=== PATIENT | female | born 1990 | race Caucasian/White ===

== ENCOUNTER 2016-05-03 09:51 | Emergency (ER) | payer SELFPAY | END 2016-05-03 13:20 | disposition home or self-care (01) | DX: S39.011A Strain of muscle, fascia and tendon of abdomen, initial encounter (principal); W01.0XXA Fall on same level from slipping, tripping and stumbling without subsequent striking against object, initial encounter; Y92.89 Other specified places as the place of occurrence of the external cause; Y99.0 Civilian activity done for income or pay; F17.200 Nicotine dependence, unspecified, uncomplicated ==

== ENCOUNTER 2017-09-09 11:56 | Emergency (ER) | payer MEDICAID ==
[2017-09-09 13:05] LABS: BASOPHILS # (AUTO) 0.1 10^3/uL (0.0-0.1); BASOPHILS % (AUTO) 0.7 %; EOSINOPHILS # (AUTO) 0.1 10^3/uL (0.0-0.7); EOSINOPHILS % (AUTO) 0.9 %; HGB - HEMOGLOBIN 13.8 g/dL (12.0-16.0); LYMPHOCYTES # (AUTO) 1.3 10^3/uL (1.5-3.5); LYMPHOCYTES % (AUTO) 15.9 %; MEAN CORPUSCULAR HEMOGLOBIN 30.6 pg (27.0-31.0); MEAN CORPUSCULAR HGB CONC 33.4 g/dL (32.0-36.0); MEAN CORPUSCULAR VOLUME 91.4 fL (81.0-99.0); MEAN PLATELET VOLUME 7.7 fL (7.9-10.8); MONOCYTES # (AUTO) 0.5 10^3/uL (0.0-1.0); MONOCYTES % (AUTO) 5.7 %; NEUTROPHILS # (AUTO) 6.2 10^3/uL (1.5-6.6); NEUTROPHILS % (AUTO) 76.8 %; PLT - PLATELET COUNT 242 10^3/uL (130-450); RED BLOOD COUNT 4.53 10^6/uL (4.20-5.40); RED CELL DISTRIBUTION WIDTH 14.2 % (12.0-15.0); WHITE BLOOD COUNT 8.1 x10^3/uL (4.8-10.8)
[2017-09-09 13:16] LABS: ALBUMIN 4.2 g/dL (3.2-5.5); ALBUMIN/GLOBULIN RATIO 1.3 (1.0-2.2); BILIRUBIN,TOTAL 0.8 mg/dL (0.2-1.0); CALCIUM 9.6 mg/dL (8.5-10.3); CREATININE 0.8 mg/dL (0.4-1.0); TOTAL PROTEIN 7.5 g/dL (6.7-8.2)
[2017-09-09 14:21] LABS: BILIRUBIN,URINE NEGATIVE (NEGATIVE); GLUCOSE, URINE (UA) NEGATIVE (NEGATIVE); KETONES,URINE (UA) NEGATIVE (NEGATIVE); LEUKOCYTE ESTERASE, URINE NEGATIVE (NEGATIVE); NITRITE,URINE NEGATIVE (NEGATIVE); OCCULT BLOOD,URINE NEGATIVE (NEGATIVE); PROTEIN,URINE NEGATIVE (NEGATIVE); UROBILINOGEN,URINE 0.2 (NORMAL) E.U./dL (NORMAL)
[2017-09-09 14:25] LABS: CLARITY,URINE CLEAR (CLEAR); HCG UR QUAL NEGATIVE
[2017-09-09] MEDS ORDERED: KETOROLAC 60 MG/2 ML VIAL IVP STA (15:51)
[2017-09-09] MEDS ORDERED: SODIUM CHLORIDE 0.9% 1,000 ML IV ONE (15:51)
--- NOTE | 2017-09-09 15:59 | ED Physician Documentation ---
History of Present Illness - Stated complaint Stated Complaint: R LOWER ABD PX - Chief complaint Chief Complaint: Abd Pain - Additonal information Additional information: hx from pt 27 y/o f LMP now denies preg hx ovarian cysts to ED with abrupt onset severer R abd pain today 11 AM while getting dressed no fever nausea no diarrhea no vag dc no urinary sx Review of Systems Constitutional: denies: Fever GI: reports: Abdominal Pain, Nausea. denies: Diarrhea : reports: LMP (now). denies: Discharge, Now EGA Musculoskeletal: denies: Back pain Endocrine: denies: Easy bruising / bleeding Immunocompromised: denies: Immunocompromised PD PAST MEDICAL HISTORY - Past Surgical History Past Surgical History: No - Present Medications Home Medications: Ambulatory Orders Medication Instructions Recorded Confirmed No Known Home Medications [No 05/03/16 05/03/16 Known Home Medications] - Allergies Allergies/Adverse Reactions: Allergies Allergy/AdvReac Type Severity Reaction Status Date / Time No Known Drug Allergies Allergy Verified 09/09/17 12:35 - Social History Does the pt smoke?: Yes Smoking Status: Current every day smoker Does the pt drink ETOH?: No Does the pt have substance abuse?: No - Immunizations Immunizations are current?: Yes PD ED PE NORMAL - Vitals Vital signs reviewed: Yes - Cardiac Cardiac: RRR - Respiratory Respiratory: No respiratory distress, Clear bilaterally - Abdomen Abdomen: Soft, Other (entire right abd TTP lower > upper with guarding) Results - Vitals Vitals: Vital Signs - 24 hr 09/09/17 09/09/17 09/09/17 12:31 15:22 18:19 Temperature 36.5 C Heart Rate 72 67 69 Respiratory 16 12 18 Rate Blood Pressure 128/76 119/83 H 123/86 H O2 Saturation 99 98 99 Oxygen O2 Source Room air - Labs Labs: Laboratory Tests 09/09/17 09/09/17 09/09/17 12:51 12:51 14:15 WBC 8.1 RBC 4.53 Hgb 13.8 Hct 41.4 MCV 91.4 MCH 30.6 MCHC 33.4 RDW 14.2 Plt Count 242 MPV 7.7 L Neut # (Auto) 6.2 Lymph # (Auto) 1.3 L [place] # (Auto) 0.5 Eos # (Auto) 0.1 Baso # (Auto) 0.1 Absolute Nucleated RBC 0.00 Nucleated RBC % 0.0 Sodium 138 Potassium 3.9 Chloride 105 Carbon Dioxide 25 Anion Gap 8.0 BUN 7 Creatinine 0.8 Estimated GFR (MDRD) 86 L Glucose 88 Calcium 9.6 Total Bilirubin 0.8 AST 28 ALT 17 Alkaline Phosphatase 50 Total Protein 7.5 Albumin 4.2 Globulin 3.3 Albumin/Globulin Ratio 1.3 Lipase 20 L Urine Color YELLOW Urine Clarity CLEAR Urine pH 7.0 Ur Specific [place] 1.010 Urine Protein NEGATIVE Urine Glucose (UA) NEGATIVE Urine Ketones NEGATIVE Urine Occult Blood NEGATIVE Urine Nitrite NEGATIVE Urine Bilirubin NEGATIVE Urine Urobilinogen 0.2 (NORMAL) Ur Leukocyte Esterase NEGATIVE Ur Microscopic Review NOT INDICATED Urine Culture Comments NOT INDICATED Urine HCG, Qual NEGATIVE - Rads (name of study) abd and pelvis sono Radiology: See rad report (nl GB, nl ovaries, no ff, appendix non vis) PD MEDICAL DECISION MAKING - ED course ED course: labs nl, HCG neg, GB ovaries kidney nl on sono still sig TTP concern for appendicitis though abrupt onset atypical - ordered CT with IV con > [address] not done and pt says she needs to leave I spoke to her and explained I still had not uled out appy and she says she will follow up PMD tomorrow for a recheck and return if worse - Sepsis Event Vital Signs: Vital Signs - 24 hr 09/09/17 09/09/17 09/09/17 12:31 15:22 18:19 Temperature 36.5 C Heart Rate 72 67 69 Respiratory 16 12 18 Rate Blood Pressure 128/76 119/83 H 123/86 H O2 Saturation 99 98 99 Oxygen O2 Source Room air Departure - Departure Disposition: 07 Against Medical Advice Clinical Impression: Abdominal pain Qualifiers: Abdominal location: right lower quadrant Qualified Code(s): R10.31 - Right lower quadrant pain Condition: Stable Comments: The kidney, gallbladder, and ovaries were all normal on ultrasound. But the appendix could not be seen so appendicitis has not yet been ruled out. You could not wait any longer for the CT scan Please see your PMD for a recheck tomorrow And return if worse - we are always open and would be happy to continue caring for you Discharge Date/Time: 09/09/17 20:00
[2017-09-09] MEDS ORDERED: ONDANSETRON 4 MG/2 ML VIAL IVP STA (17:48)
[2017-09-09] MEDS ORDERED: MORPHINE 2 MG/ML SYRINGE IVP STA (17:48)
--- NOTE | 2017-09-09 18:02 | Ultrasound Report ---
Procedure Date: 09/09/2017 Accession Number: [id number] / [id number] Procedure: US - Abdomen Limited CPT Code: FULL RESULT: EXAM: ABDOMEN ULTRASOUND LIMITED, RIGHT UPPER QUADRANT EXAM DATE: 09/09/2017 05:00 PM. CLINICAL HISTORY: Right abdominal pain evaluate gallbladder and appendix. COMPARISON: None. TECHNIQUE: Real-time scanning was performed with static images obtained. FINDINGS: Liver: Normal in size and echotexture. 16.7 cm. Main portal vein flow: Hepatopetal. Gallbladder: Normal. No stones, wall thickening, or sonographic Solorio's sign. Biliary System: CBD measures 3.4 mm. No intrahepatic or extrahepatic ductal dilatation. Pancreas: Normal. Right kidney: 10 cm. No hydronephrosis. Other: None. IMPRESSION: Normal. No cholelithiasis or cholecystitis. RADIA
--- NOTE | 2017-09-09 18:05 | Ultrasound Report ---
Procedure Date: 09/09/2017 Accession Number: [id number] / [id number] Procedure: US - Pelvic w/Doppler Limited CPT Code: FULL RESULT: EXAM: PELVIC ULTRASOUND EXAM DATE: 09/09/2017 05:34 PM. CLINICAL HISTORY: Right lower quadrant pain. COMPARISON: 05/03/2016. TECHNIQUE: Realtime transabdominal pelvic scan performed to identify the uterus and adnexa and as an overview of other pelvic structures, with static image documentation. FINDINGS: Uterus: 6.4 x 3.1 x 4.5 cm, volume 46.7 cc. Anteverted position. Normal overall size and echotexture. Masses: None. Endometrium: 3.3 mm. Normal. Cervix: Unremarkable. Right Ovary: 3.4 x 1.7 x 1.6 cm, volume 4.8 cc. Normal echotexture and blood flow. Left Ovary: 3.7 x 1.9 x 2.5 cm, volume 9.2 cc. Normal echotexture and blood flow. Free Fluid: None. Other: Limited right lower quadrant ultrasound evaluation limited by significant bowel gas artifacts. No appendix, free or complex collections are noted. No adenopathy identified. IMPRESSION: 1. Appendix not seen on this limited study. No adenopathy, free fluid or collection. 2. Normal pelvic ultrasound. RADIA
[2017-09-09 18:21] VITALS: BP 123/86
[2017-09-09] MEDS ORDERED: IOPAMIDOL-300 100 ML VIAL ONE ×2 (18:43→19:48)
== END 2017-09-09 20:00 | disposition left against medical advice (07) ==
LOC: ED 11:56
DX: Z53.20 Procedure and treatment not carried out because of patient's decision for unspecified reasons (principal); R10.31 Right lower quadrant pain; F17.200 Nicotine dependence, unspecified, uncomplicated
CPT/HCPCS: 36415; 76705; 76856; 80053; 81003; 81025; 83690; 85025; 93976; 96361; 96374; 96375; 99283; J2270; 81001; 87086

== ENCOUNTER 2018-03-19 09:55 | Emergency (ER) | payer SELFPAY ==
--- NOTE | 2018-03-19 10:07 | ED Physician Documentation ---
PD HPI HEADACHE - Stated complaint Stated Complaint: HEADACHE - History obtained from History obtained from: Patient - History of Present Illness Timing - onset: How many days ago (2) Timing - onset during: Light activity Timing - duration: Days (2) Timing - details: Gradual onset, Still present, Waxing and waning Worst headache ever?: No: Worst headache ever? (feels similar to migraines she gets at times, but has not had one last 2 days previously. No injury. No URI symptoms. No focal weakness. she is light sensitive.) Location: Front, Left Quality: Throbbing, Aching Associated symptoms: Nausea, Vision changes (blurred left eye at times). No: Fever, Stiff neck, Vomiting, Weakness, Numbness Improved by: No: Meds (Excedrin OTC med.) Worsened by: Light Contributing factors: No: Recent illness, Trauma Similar symptoms before: Diagnosis (has had migraines headaches with similar symptoms, but usually last just hours and improved with Excedrin/time.) Review of Systems Constitutional: denies: Fever, Chills Eyes: reports: Photophobia. denies: Loss of vision Nose: denies: Rhinorrhea / runny nose, Congestion Throat: denies: Sore throat Respiratory: denies: Cough Skin: denies: Rash, Lesions Neurologic: denies: Focal weakness, Numbness, Difficulty speaking PD PAST MEDICAL HISTORY - Past Medical History Cardiovascular: None Respiratory: None Neuro: Migraines Endocrine/Autoimmune: None - Past Surgical History Past Surgical History: No - Present Medications Home Medications: Ambulatory Orders Medication Instructions Recorded Confirmed Ondansetron Odt [Zofran] 4 mg TL Q6H PRN #10 tablet 03/19/18 SUMAtriptan [Imitrex] 50 mg PO ONCE PRN #5 tablet 03/19/18 - Allergies Allergies/Adverse Reactions: Allergies Allergy/AdvReac Type Severity Reaction Status Date / Time No Known Drug Allergies Allergy Verified 03/19/18 10:09 - Social History Does the pt smoke?: Yes Smoking Status: Current every day smoker Does the pt drink ETOH?: No Does the pt have substance abuse?: No - Immunizations Immunizations are current?: Yes - POLST Patient has POLST: No PD ED PE NORMAL - Vitals Vital signs reviewed: Yes - General General: Alert and oriented X 3, No acute distress, Well developed/nourished - HEENT HEENT: Atraumatic, PERRL (light sensitive), Ears normal, Pharynx benign - Neck Neck: Supple, no meningeal sign, No adenopathy - Cardiac Cardiac: RRR, No murmur - Respiratory Respiratory: Clear bilaterally - Back Back: No CVA TTP - Derm Derm: Normal color, Warm and dry - Neuro Neuro: Alert and oriented X 3, No motor deficit, Normal speech Results - Vitals Vitals: Vital Signs - 24 hr 03/19/18 03/19/18 03/19/18 10:05 10:22 11:52 Temperature 36.6 C 36.9 C Heart Rate 86 86 77 Respiratory 12 14 12 Rate Blood Pressure 141/101 H 141/101 H 135/98 H O2 Saturation 100 100 100 Oxygen O2 Source Room air PD MEDICAL DECISION MAKING - ED course Complexity details: re-evaluated patient (ROE mostly gone with Zofran and Toradol. ), considered differential, d/w patient Departure - Departure Disposition: 01 Home, Self Care Clinical Impression: Migraine headache Qualifiers: Migraine type: without aura Status migrainosus presence: without status migrainosus Intractability: not intractable Qualified Code(s): G43.009 - Migraine without aura, not intractable, without status migrainosus Condition: Stable Record reviewed to determine appropriate education?: Yes Instructions: ED Headache Migraine Prescriptions: Ondansetron Odt [Zofran] 4 mg TL Q6H PRN #10 tablet PRN Reason: Nausea / Vomiting SUMAtriptan [Imitrex] 50 mg PO ONCE PRN #5 tablet PRN Reason: Headache Comments: For subsequent migraines, you can try a combination of the Excedrin or ibuprofen along with ondansetron for nausea and Imitrex for the headache and see if it alleviates it more promptly. Drink lots of fluids today. Discharge Date/Time: 03/19/18 12:28
[2018-03-19] MEDS ORDERED: DEXAMETHASONE 10 MG/ML VIAL PO STA (11:04)
[2018-03-19] MEDS ORDERED: KETOROLAC 30 MG/ML VIAL IM STA (11:04)
[2018-03-19] MEDS ORDERED: ONDANSETRON ODT 4 MG TABLET TL STA (11:04)
[2018-03-19 11:53] VITALS: BP 135/98
== END 2018-03-19 12:28 | disposition home or self-care (01) ==
LOC: ED 09:55
DX: G43.009 Migraine without aura, not intractable, without status migrainosus (principal); F17.200 Nicotine dependence, unspecified, uncomplicated
CPT/HCPCS: 96372; 99283; Q0162

== ENCOUNTER 2018-04-22 08:32 | Emergency (ER) | payer SELFPAY ==
[2018-04-22] MEDS ORDERED: IBUPROFEN 800 MG TABLET PO STA (11:35)
--- NOTE | 2018-04-22 11:38 | ED Physician Documentation ---
PD HPI URI - Stated complaint Stated Complaint: FLU LIKE SYMPTOMS - Chief complaint Chief Complaint: General - History obtained from History obtained from: Patient - History of Present Illness Timing - onset: How many days ago (4) Timing duration: Days (4) Timing details: Still present Associated symptoms: Fever, Nasal congestion, Dry cough Similar symptoms before: Has not had sx before - Additional information Additional information: The patient is a 28-year-old female who presents with cough and congestion that has been progressing over the past 4 days. Her cough is nonproductive of sputum, but she reports discomfort in her chest with coughing. She also reports intermittent fever and lightheadedness. She had a headache yesterday, but not today. She denies sore throat except with coughing. She denies abdominal pain, nausea or vomiting. Her partner has been sick with similar symptoms. Review of Systems Constitutional: reports: Fever, Myalgias Eyes: denies: Irritation Ears: denies: Ear pain Nose: reports: Congestion Throat: denies: Sore throat Cardiac: reports: Chest pain / pressure (with coughing) Respiratory: reports: Cough. denies: Dyspnea GI: denies: Abdominal Pain, Nausea, Vomiting : denies: Dysuria Skin: denies: Rash Musculoskeletal: denies: Back pain Neurologic: denies: Headache PD PAST MEDICAL HISTORY - Past Medical History Cardiovascular: None Respiratory: None Neuro: Migraines Endocrine/Autoimmune: None - Past Surgical History Past Surgical History: No - Present Medications Home Medications: Ambulatory Orders Medication Instructions Recorded Confirmed Ondansetron Odt [Zofran] 4 mg TL Q6H PRN #10 tablet 03/19/18 SUMAtriptan [Imitrex] 50 mg PO ONCE PRN #5 tablet 03/19/18 Benzonatate [Tessalon Perle] 100 - 200 mg PO TID PRN #30 capsule 04/22/18 - Allergies Allergies/Adverse Reactions: Allergies Allergy/AdvReac Type Severity Reaction Status Date / Time No Known Drug Allergies Allergy Verified 04/22/18 08:50 - Social History Does the pt smoke?: Yes Smoking Status: Current every day smoker Does the pt drink ETOH?: No Does the pt have substance abuse?: No - Immunizations Immunizations are current?: Yes - POLST Patient has POLST: No PD ED PE NORMAL - Vitals Vital signs reviewed: Yes (normal) - General General: Alert and oriented X 3, Well developed/nourished - HEENT HEENT: Atraumatic, EOMI, Ears normal, Pharynx benign - Neck Neck: Supple, no meningeal sign, No adenopathy, No JVD - Cardiac Cardiac: RRR, No murmur - Respiratory Respiratory: Clear bilaterally - Abdomen Abdomen: Soft, Non tender - Back Back: No CVA TTP - Derm Derm: No rash - Extremities Extremities: No edema, No calf tenderness / cord - Neuro Neuro: Alert and oriented X 3, No motor deficit, Normal speech Results - Vitals Vitals: Oxygen O2 Source Room air - Labs Labs: Laboratory Tests 04/22/18 08:45 Influenza A (Rapid) Negative Influenza B (Rapid) Negative PD MEDICAL DECISION MAKING - ED course Complexity details: reviewed results, re-evaluated patient, considered differential, d/w patient ED course: The patient's presentation is most consistent with viral upper respiratory infection, with acute viral syndrome. Her influenza swab is negative. Her presentation does not suggest meningitis or pneumonia. Treatment in the emergency department included administration of ibuprofen 800 mg orally. She is being discharged with prescription for Tessalon. I discussed with her the expected course of illness, symptomatic treatment and outpatient follow-up, as well as potentially worrisome signs or symptoms that should prompt reevaluation in the emergency department. Departure - Departure Disposition: 01 Home, Self Care Clinical Impression: Acute viral syndrome Condition: Stable Instructions: ED Viral Syndrome Follow-Up: [facility] [Provider Group] Prescriptions: Benzonatate [Tessalon Perle] 100 - 200 mg PO TID PRN #30 capsule PRN Reason: Cough Comments: Your symptoms are most consistent with a viral upper respiratory infection. Antibiotics are not clinically indicated for this type of viral infection. Treatment should be geared toward managing symptoms: Drink plenty of fluids. Use Tylenol or ibuprofen as needed for fever or discomfort. You can use Tessalon as prescribed if needed for cough. Wash your hands frequently, and cover your cough. Follow up with your primary physician, or return to the emergency department, if not improving within 1-2 weeks. Return to the emergency department if you develop increasing difficulty breat edward, or otherwise worsening symptoms. Forms: Activity restrictions Discharge Date/Time: 04/22/18 12:03
[2018-04-22 12:02] VITALS: BP 134/80
== END 2018-04-22 12:03 | disposition home or self-care (01) ==
LOC: ED 08:32
DX: B34.9 Viral infection, unspecified (principal); F17.200 Nicotine dependence, unspecified, uncomplicated
CPT/HCPCS: 87275; 87276; 99283; A9270

== ENCOUNTER 2019-09-06 12:43 | Emergency (ER) | payer SELFPAY ==
[2019-09-06 12:53] VITALS: BP 132/88
--- NOTE | 2019-09-06 13:21 | ED Physician Documentation ---
History of Present Illness - Stated complaint Stated Complaint: HEAD INJURY - Chief complaint Chief Complaint: General - History of Present Illness Timing: How many weeks ago (2) Pain level max: 10 Pain level now: 0 - Additonal information Additional information: 29-year-old female presents to the emergency department for evaluation of a hematoma above her right eye and right rib pain. This is after a fall 2 weeks ago where she hit the dresser in her room. Patient does report to me that she does not remember the event of the fall and did have loss of consciousness. She woke up to her and mother trying to keep her awake. Patient has a moderate sized hematoma on her left forehead. She is concerned because the bruising has not resolved. She also reports right-sided rib pain that is worse with a deep breath. Since the fall she denies headaches, vomiting, feeling dizzy weak or fatigued or dyspneic Patient denies any pertinent past medical history. Takes no prescribed medications. Social history positive for tobaccoism. Review of Systems Constitutional: denies: Fever, Chills Eyes: denies: Loss of vision, Decreased vision, Photophobia Ears: denies: Loss of hearing, Ear pain, Drainage/discharge Nose: denies: Rhinorrhea / runny nose, Congestion, Epistaxis, Sinus pressure / pain, Foreign Body Throat: denies: Dental pain / toothache, Oral lesions / sores, Sore throat Cardiac: reports: Chest pain / pressure (right sided reporducible rib pain). denies: Pedal edema, Calf pain Respiratory: denies: Dyspnea, Hemoptysis GI: denies: Abdominal Pain, Abdominal Swelling, Nausea : denies: Dysuria Skin: denies: Rash, Lesions Musculoskeletal: denies: Neck pain, Back pain, Extremity pain Neurologic: reports: Head injury, LOC (2 weeks ago after striking the dresser). denies: Focal weakness, Difficulty speaking, Syncope, Seizure, Confused, Altered mental status, Headache PD PAST MEDICAL HISTORY - Past Medical History Cardiovascular: None Respiratory: None Neuro: Migraines Endocrine/Autoimmune: None - Past Surgical History Past Surgical History: No - Present Medications Home Medications: Ambulatory Orders Medication Instructions Recorded Confirmed Ondansetron Odt [Zofran] 4 mg TL Q6H PRN #10 tablet 03/19/18 SUMAtriptan [Imitrex] 50 mg PO ONCE PRN #5 tablet 03/19/18 Benzonatate [Tessalon Perle] 100 - 200 mg PO TID PRN #30 capsule 04/22/18 - Allergies Allergies/Adverse Reactions: Allergies Allergy/AdvReac Type Severity Reaction Status Date / Time No Known Drug Allergies Allergy Verified 09/06/19 12:50 - Social History Does the pt smoke?: Yes Smoking Status: Current every day smoker Does the pt drink ETOH?: No Does the pt have substance abuse?: No - Immunizations Immunizations are current?: Yes - POLST Patient has POLST: No PD ED PE NORMAL - General General: Alert and oriented X 3, No acute distress, Well developed/nourished - HEENT HEENT: Other (3 cm left forehead hematoma; bruising aroudn the left eye. EOMI intact. No bonu tenderness of either orbit) - Neck Neck: No: No bony TTP, No adenopathy - Cardiac Cardiac: No: RRR - Respiratory Respiratory: Other (tenderness with palpation right anterior lateral rib wall. no crepitus or ecchymosis). No: No respiratory distress - Abdomen Abdomen: Normal bowel sounds - Rectal Rectal: Deferred - Back Back: No CVA TTP, No spinal TTP - Derm Derm: Normal color, Warm and dry, No rash, Other (hematoma left forehead; left periocular bruising) - Extremities Extremities: No deformity - Neuro Neuro: Alert and oriented X 3, lacquer machine feeder 2-12 intact, No motor deficit Eye Opening: Spontaneous Motor: Obeys Commands - Psych Psych: Normal mood Results - Vitals Vitals: Vital Signs - 24 hr 09/06/19 12:50 Temperature 36.5 C Heart Rate 120 H Respiratory 16 Rate Blood Pressure 132/88 H O2 Saturation 96 Oxygen O2 Source Room air - Rads (name of study) CXR Radiology: Final report received (No acute cardiopulmonary pathology) PD MEDICAL DECISION MAKING - ED course Complexity details: reviewed results, d/w patient, d/w family ED course: 29-year-old female presents to the emergency department after a fall 2 weeks ago when she hit the dresser at her house. - She is noted to have a large 3 cm hematoma to her left forehead. The hematoma is soft and there is no surrounding erythema. No signs of infection. Will not recommend drainage of this hematoma at this time unless it fails to resolve. - She is also noted to have left periocular ecchymosis. She has no ocular entrapment and no bony or facial tenderness/crepitus. I have offered the patient a CT scan of her head to rule out fracture but she declines that at this time. Her main focus is the hematoma. - She does have right lateral rib wall tenderness to palpation. Chest x-ray demonstrates no obvious deformity or rib fracture. My suspicion is that she likely has a contusion. Departure - Departure Disposition: 01 Home, Self Care Clinical Impression: Hematoma, Chest wall tenderness Ecchymosis of left eye Qualifiers: Encounter type: initial encounter Qualified Code(s): S05.12XA - Contusion of eyeball and orbital tissues, left eye, initial encounter Condition: Stable Instructions: ED Contusion Chest Wall, ED Hematoma Comments: The x-ray of your chest does not show any obviously broken ribs. Your lungs are fully inflated The hematoma on your forehead will likely take a few weeks to resolve. Hematomas are typically only drained if they become infected and yours at this time does not appear to be infected. Please return to the emergency department if you develop any fevers, have redness around the hematoma, have difficulty seeing speaking or talking. I would recommend that you take ibuprofen or tylenol for any chest discomfort.
--- NOTE | 2019-09-06 13:45 | XRAY Report ---
PROCEDURE: Chest 2 View X-Ray INDICATIONS: cough TECHNIQUE: 2 view(s) of the chest. COMPARISON: None. FINDINGS: Surgical changes and devices: None. Lungs and pleura: No pleural effusions or pneumothorax. Lungs are clear. Mediastinum: Mediastinal contours are normal. Heart size is normal. Bones and chest wall: No suspicious bony abnormalities. Soft tissues appear unremarkable. IMPRESSION: No acute cardiopulmonary pathology. Reviewed by: Rodger Atkinson MD on 09/06/2019 1:44 PM PDT Approved by: Rodger Atkinson MD on 09/06/2019 1:44 PM PDT Station ID: [id number]
== END 2019-09-06 14:06 | disposition home or self-care (01) ==
LOC: ED 12:43
DX: S00.83XA Contusion of other part of head, initial encounter (principal); S00.12XA Contusion of left eyelid and periocular area, initial encounter; R07.89 Other chest pain; W01.190A Fall on same level from slipping, tripping and stumbling with subsequent striking against furniture, initial encounter; Y92.003 Bedroom of unspecified non-institutional (private) residence as the place of occurrence of the external cause; F17.200 Nicotine dependence, unspecified, uncomplicated
CPT/HCPCS: 71046; 99281; 99284

== ENCOUNTER 2020-01-04 10:53 | Emergency (ER) | payer MEDICAID ==
--- NOTE | 2020-01-04 11:15 | ED Physician Documentation ---
PD HPI ABD PAIN - Stated complaint Stated Complaint: N/V - Chief complaint Chief Complaint: Abd Pain - History obtained from History obtained from: Patient - Additional information Additional information: 29-year-old woman who has no possibility of has been dealing with painless nausea for about a month that is acutely worse over the last 3 days. She cannot keep anything down now. She does have generally loose stools as well. Denies abdominal pain. She does not think she has been obviously losing weight. She does notice easy bruising. She does use marijuana almost daily but finds no relief from a hot shower. Review of Systems Ten Systems: 10 systems reviewed and negative Constitutional: denies: Fever, Chills, Weight Loss Nose: denies: Rhinorrhea / runny nose, Congestion Throat: denies: Sore throat Cardiac: denies: Chest pain / pressure, Palpitations Respiratory: denies: Dyspnea, Cough PD PAST MEDICAL HISTORY - Past Medical History Cardiovascular: None Respiratory: None Neuro: Migraines Endocrine/Autoimmune: None - Past Surgical History Past Surgical History: No - Present Medications Home Medications: Ambulatory Orders Medication Instructions Recorded Confirmed Ondansetron Odt [Zofran] 4 mg TL Q6H PRN #10 tablet 03/19/18 SUMAtriptan [Imitrex] 50 mg PO ONCE PRN #5 tablet 03/19/18 Benzonatate [Tessalon Perle] 100 - 200 mg PO TID PRN #30 capsule 04/22/18 Ondansetron Odt [Zofran] 4 mg TL Q6H PRN #20 tablet 01/04/20 - Allergies Allergies/Adverse Reactions: Allergies Allergy/AdvReac Type Severity Reaction Status Date / Time No Known Drug Allergies Allergy Verified 01/04/20 11:07 - Social History Does the pt smoke?: Yes Smoking Status: Current every day smoker Does the pt drink ETOH?: No Does the pt have substance abuse?: No Substance Use and Type: Marijuana - Family History Family history: reports: Non contributory - Immunizations Immunizations are current?: Yes - POLST Patient has POLST: No PD ED PE NORMAL - Vitals Vital signs reviewed: Yes - General General: Alert and oriented X 3, No acute distress - HEENT HEENT: PERRL, EOMI - Neck Neck: Supple, no meningeal sign, No bony TTP - Cardiac Cardiac: RRR, No murmur - Respiratory Respiratory: No respiratory distress, Clear bilaterally - Abdomen Abdomen: Non tender - Back Back: No CVA TTP, No spinal TTP - Derm Derm: Normal color, Warm and dry - Extremities Extremities: No edema, No calf tenderness / cord - Neuro Neuro: Alert and oriented X 3, Normal speech Results - Vitals Vitals: Vital Signs - 24 hr 01/04/20 01/04/20 10:57 13:19 Temperature 36.8 C Heart Rate 90 77 Respiratory 16 18 Rate Blood Pressure 152/98 H 138/101 H O2 Saturation 99 100 Oxygen O2 Source Room air - Labs Labs: Laboratory Tests 01/04/20 01/04/20 01/04/20 11:30 11:30 11:30 WBC 4.3 L RBC 4.61 Hgb 15.6 Hct 45.5 MCV 98.7 MCH 33.8 H MCHC 34.3 RDW 13.7 Plt Count 156 MPV 10.1 Neut # (Auto) 2.9 Lymph # (Auto) 0.8 L Ceiba # (Auto) 0.5 Eos # (Auto) 0.0 Baso # (Auto) 0.0 Absolute Nucleated RBC 0.00 Nucleated RBC % 0.0 VBG pH VBG pCO2 VBG pO2 VBG HCO3 VBG Total CO2 VBG O2 Saturation VBG Base Excess Sodium 138 Potassium 3.2 L Chloride 98 L Carbon Dioxide 22 Anion Gap 18.0 H BUN 5 L Creatinine 0.8 Estimated GFR (MDRD) 85 L Glucose 87 Calcium 9.5 Magnesium Total Bilirubin 2.0 H AST 111 H ALT 68 H Alkaline Phosphatase 100 Total Protein 7.5 Albumin 4.0 Globulin 3.5 Albumin/Globulin Ratio 1.1 Lipase 32 Urine Color DARK YELLOW Urine Clarity CLEAR Urine pH 6.0 Ur Specific [place] 1.020 Urine Protein NEGATIVE Urine Glucose (UA) NEGATIVE Urine Ketones >=80 H Urine Occult Blood NEGATIVE Urine Nitrite NEGATIVE Urine Bilirubin NEGATIVE Urine Urobilinogen 0.2 (NORMAL) Ur Leukocyte Esterase NEGATIVE Ur Microscopic Review NOT INDICATED Urine Culture Comments NOT INDICATED Urine HCG, Qual NEGATIVE Serum Ketones 01/04/20 01/04/20 11:30 11:30 WBC RBC Hgb Hct MCV MCH MCHC RDW Plt Count MPV Neut # (Auto) Lymph # (Auto) Ceiba # (Auto) Eos # (Auto) Baso # (Auto) Absolute Nucleated RBC Nucleated RBC % VBG pH 7.391 VBG pCO2 33.3 L VBG pO2 39.7 VBG HCO3 19.8 L VBG Total CO2 20.8 L VBG O2 Saturation 76.4 VBG Base Excess -4.2 L Sodium Potassium Chloride Carbon Dioxide Anion Gap BUN Creatinine Estimated GFR (MDRD) Glucose Calcium Magnesium 2.0 Total Bilirubin AST ALT Alkaline Phosphatase Total Protein Albumin Globulin Albumin/Globulin Ratio Lipase Urine Color Urine Clarity Urine pH Ur Specific [place] Urine Protein Urine Glucose (UA) Urine Ketones Urine Occult Blood Urine Nitrite Urine Bilirubin Urine Urobilinogen Ur Leukocyte Esterase Ur Microscopic Review Urine Culture Comments Urine HCG, Qual Serum Ketones NEGATIVE PD MEDICAL DECISION MAKING - ED course ED course: 29-year-old woman presents with nausea and vomiting that is painless worsening over a month. Examination is benign. Labs show evidence of dehydration and some transaminitis. This was discussed with her, she is a daily heavy drinker. Departure - Departure Disposition: Home, Self Care Clinical Impression: Vomiting Qualifiers: Vomiting type: unspecified Vomiting Intractability: non-intractable Nausea presence: with nausea Qualified Code(s): R11.2 - Nausea with vomiting, unspecified Alcoholic hepatitis Qualifiers: Ascites presence: without ascites Qualified Code(s): K70.10 - Alcoholic hepatitis without ascites Condition: Good Record reviewed to determine appropriate education?: Yes Instructions: ED Nausea Vomiting, ED Alcohol Abuse Prescriptions: Ondansetron Odt [Zofran] 4 mg TL Q6H PRN #20 tablet PRN Reason: Nausea / Vomiting Comments: Based on your labs and ultrasound the most Likely cause of your vomiting is from ongoing alcohol abuse. It is important to quit drinking alcohol and let your liver recover. Return if worsening. Follow-up with your primary care physician regardless, next available appointment.
[2020-01-04] MEDS: ONDANSETRON 4 MG/2 ML VIAL IVP STA ×2 (11:28→11:37)
[2020-01-04 11:41] LABS: GLUCOSE, URINE (UA) NEGATIVE (NEGATIVE); KETONES,URINE (UA) >=80 mg/dL (NEGATIVE); LEUKOCYTE ESTERASE, URINE NEGATIVE (NEGATIVE); NITRITE,URINE NEGATIVE (NEGATIVE); OCCULT BLOOD,URINE NEGATIVE (NEGATIVE); PROTEIN,URINE NEGATIVE (NEGATIVE); UROBILINOGEN,URINE 0.2 (NORMAL) E.U./dL (NORMAL)
[2020-01-04 11:46] LABS: BILIRUBIN,URINE NEGATIVE (NEGATIVE); CLARITY,URINE CLEAR (CLEAR); HCG UR QUAL NEGATIVE; ICTOTEST,URINE NEGATIVE
[2020-01-04 11:53] LABS: BASOPHILS % (AUTO) 0.9 %; EOSINOPHILS % (AUTO) 0.9 %; HGB - HEMOGLOBIN 15.6 g/dL (12.0-16.0); LYMPHOCYTES # (AUTO) 0.8 10^3/uL (1.5-3.5); LYMPHOCYTES % (AUTO) 19.3 %; MEAN CORPUSCULAR HEMOGLOBIN 33.8 pg (27.0-31.0); MEAN CORPUSCULAR HGB CONC 34.3 g/dL (32.0-36.0); MEAN CORPUSCULAR VOLUME 98.7 fL (81.0-99.0); MEAN PLATELET VOLUME 10.1 fL (7.9-10.8); MONOCYTES # (AUTO) 0.5 10^3/uL (0.0-1.0); MONOCYTES % (AUTO) 11.2 %; NEUTROPHILS # (AUTO) 2.9 10^3/uL (1.5-6.6); NEUTROPHILS % (AUTO) 67.2 %; PLT - PLATELET COUNT 156 10^3/uL (130-450); RED BLOOD COUNT 4.61 10^6/uL (4.20-5.40); RED CELL DISTRIBUTION WIDTH 13.7 % (12.0-15.0); WHITE BLOOD COUNT 4.3 x10^3/uL (4.8-10.8)
[2020-01-04] MEDS ORDERED: SODIUM CHLORIDE 0.9% 1,000 ML IV STA (11:54)
[2020-01-04 11:59] LABS: ALBUMIN/GLOBULIN RATIO 1.1 (1.0-2.2); CALCIUM 9.5 mg/dL (8.5-10.3); CREATININE 0.8 mg/dL (0.4-1.0); TOTAL PROTEIN 7.5 g/dL (6.7-8.2)
[2020-01-04] MEDS ORDERED: POTASSIUM CHLORIDE 20 MEQ TABLET PO STA (12:35)
[2020-01-04 12:56] LABS: KETONES, SERUM (ACETEST) NEGATIVE (NEGATIVE)
[2020-01-04 12:58] LABS: VBG PCO2 33.3 mmHg (41-51); VBG PH 7.391 (7.31-7.41); VBG PO2 39.7 mmHg (25-47)
[2020-01-04 12:59] LABS: VBG BASE EXCESS -4.2 mmol/L (-2 - +2); VBG TOTAL CO2 20.8 mmol/L (24-29)
[2020-01-04 13:20] VITALS: BP 138/101
--- NOTE | 2020-01-04 13:27 | Ultrasound Report ---
PROCEDURE: Abdomen Limited INDICATIONS: vomiting, abn labs TECHNIQUE: Real-time scanning was performed of the abdominal and retroperitoneal organs, with image documentatio n. COMPARISON: None. FINDINGS: Liver: The liver demonstrates diffusely increased echotexture without focal abnormalities which is co nsistent with chronic hepatocellular disease/hepatic steatosis. Gallbladder: Gallbladder is normal in appearance without gallstones, gallbladder wall thickening, or pericholecystic fluid. Negative sonographic Solorio's sign. Biliary ducts: Intrahepatic bile ducts are non-dilated. Extrahepatic bile duct caliber measures 5 m m. Normal is 6-7 mm or less in diameter, or 10 mm or less post-cholecystectomy. Pancreas: Visualized portions of the pancreas are sonographically normal. Spleen: Spleen is normal in size and homogeneous in echotexture. Pancreatic echotexture is slightly echogenic. Kidneys: Right kidney is normal in size and echotexture. Right kidney measures 10.7 cm long. No hydr onephrosis or nephrolithiasis. No solid masses. Aorta: Visualized aorta is normal in caliber at less than 3 cm. IVC: Intrahepatic inferior vena cava is patent. Miscellaneous: No free abdominal fluid. IMPRESSION: 1. The liver demonstrates diffusely increased echotexture without focal abnormalities which is consis tent with chronic hepatocellular disease/hepatic steatosis. This may explain patient's abnormal liver function tests. 2. No evidence for cholelithiasis or acute cholecystitis. Reviewed by: Jorge Luis Kumar MD on 01/04/2020 1:26 PM PST Approved by: Jorge Luis Kumar MD on 01/04/2020 1:26 PM PST Station ID: [id number]
== END 2020-01-04 13:42 | disposition home or self-care (01) ==
LOC: ED 10:53
DX: R11.2 Nausea with vomiting, unspecified (principal); E86.0 Dehydration; K70.10 Alcoholic hepatitis without ascites; F10.10 Alcohol abuse, uncomplicated; F17.200 Nicotine dependence, unspecified, uncomplicated
CPT/HCPCS: 36415; 76705; 80053; 81003; 81025; 82009; 82803; 83690; 83735; 85025; 96361; 96374; 99284; A9270; 81001; 87086